=== PATIENT | male | born 1960 | race Caucasian/White ===

== ENCOUNTER → 2024-07-29 | Outpatient (CLI) | payer OTHER, SELFPAY ==
--- NOTE | 2024-07-29 09:15 | XR_ITS ---
Examination: Shoulder,left, 3 views Technique: Shoulder AP internal rotation, AP external rotation, Y view shoulder, 3 views Exam date and time :July 29, 2024 0934 hours INDICATIONS: Lifting injury to the shoulders 3 weeks ago shoulder pain FINDINGS: Moderate narrowing glenohumeral joint No shoulder fracture or dislocation IMPRESSION: Moderate narrowing glenohumeral joint
== END | disposition home or self-care (01) ==
PROVIDERS: PCP Internal Medicine; Referring Provider Internal Medicine; Visit Provider Internal Medicine
DX: M25.812 Other specified joint disorders, left shoulder (principal)
CPT/HCPCS: 73030

== ENCOUNTER → 2024-11-18 | Outpatient (CLI) | payer OTHER, SELFPAY ==
--- NOTE | 2024-11-18 07:30 | XR_ITS ---
MRI shoulder, left, without contrast. Date and time: November 18, 2024, 0730 hrs. Indications: Left shoulder pain lifting shoulder with weakness decreased range of motion 4 months Technique: Multiple axial, sagittal and coronal sections of the shoulder have been obtained. Siemens high-resolution 1.5 [employer] MRI scanner is utilized. Axial fat-suppressed sections, TR 2350, TE 18 T2-weighted coronal fat-saturated images, TR 3500, TE 7100 T1-weighted coronal images, TR 500, TE 15 T2-weighted sagittal fat-saturated images, TR 3500, TE 57 T1-weighted sagittal sections, TR 504, TE 13. Findings: Supraspinatus tendon insertion is suspicious for 15 mm full-thickness tear Infraspinatus tendon insertion is intact. Subscapularis insertion is intact. Subscapularis bursa is not seen. Long head of the biceps is in the bicipital groove. No definite tear of the biceps superior labral anchor is seen. Retraction of the musculotendinous junction of the rotator cuff is mild. Tendinosis pattern is moderate. Distance between the acromium and humeral head is 7.2 mm Atrophy of the supraspinatus muscle is moderate. Atrophy of the infraspinatus muscle is mild. Sagittal sections demonstrate a horizontal acromion. Acromioclavicular joint demonstrates moderate osteoarthritis. Osacromiale is not identified. Moderate osteoarthritis glenohumeral joint, suspicious for posterior labral tear. Bony glenoid fossa on the sagittal sections does not demonstrate osseous defect. Occult fracture or area of avascular necrosis is not seen. Acromioclavicular joint separation is not visible. Defect in the posterolateral margin of the humeral head is not seen Impression: Recommend this patient return for MR arthrography followed by post intra-articular contrast images of the shoulder to confirm 15 mm full-thickness tear supraspinatous tendon insertion Suspicious for posterior labral tears, also best depicted on post intra-articular contrast MR arthrogram
== END | disposition home or self-care (01) ==
LOC: SMRI 07:02
PROVIDERS: PCP Student in an Organized Health Care Education/Training Program; Referring Provider Student in an Organized Health Care Education/Training Program; Visit Provider Student in an Organized Health Care Education/Training Program
DX: M75.102 Unspecified rotator cuff tear or rupture of left shoulder, not specified as traumatic (principal); M25.812 Other specified joint disorders, left shoulder
CPT/HCPCS: 73221